=== PATIENT | male | born 2000 | race African-American/Black ===

== ENCOUNTER 2020-07-02 13:09 | Emergency (ER) | payer OTHER, SELFPAY ==
[2020-07-02 13:41] VITALS: BP 128/64; PULSE 71; RESP 16; TEMP 36.9; O2SAT 100
[2020-07-02 14:19] LABS: Add Urine Microscopic? NO; Appearance Urine Clear (Clear); Bilirubin Urine Negative (Negative); Blood Urine Negative (Negative); Color Urine Yellow (Yellow); Glucose Urine UA Negative (Negative); Ketones Urine Negative (Negative); Leukocyte Esterase Ur Negative LEU/UL (Negative); Nitrate Urine Negative (Negative); Protein Urine Negative (Negative); Specific Grav Ur 1.023 (1.001-1.035); Urobilinogen Urine Negative mg/dL (<2.0)
--- NOTE | 2020-07-02 14:36 | ED.MALEGU ---
HPI - Male Genitourinary General Chief complaint: Urogenital-Male Stated complaint: GENITAL INFLAMMATION Time Seen by Provider: 07/02/20 14:03 Source: patient Mode of arrival: ambulatory Limitations: no limitations History of Present Illness HPI Narrative: This is a 19 year old male that presents to the ER for discomfort in the tip of his penis x 1 week. Reports some inflammation and irritation to the area. Reports recent unprotected sex. Denies fever, dysuria or hematuria. Related Data Home Medications Medication Instructions Recorded Confirmed No Home Medications 07/02/20 07/02/20 Allergies Allergy/AdvReac Type Severity Reaction Status Date / Time No Known Allergies Allergy Unverified 07/02/20 14:36 Review of Systems Review of Systems: Narrative: CONSTITUTIONAL: Denies fever GENITOURINARY: Denies dysuria or hematuria. SKIN: Denies rash All systems reviewed & are unremarkable except as noted in HPI and below PMFSH Past Medical History Medical History (Updated 07/02/20 @ 15:11 by Darlyn Montague PA-C) No active medical problems Social History Social History (Updated 07/02/20 @ 14:38 by Darlyn Montague PA-C) Substance use: never Exam Narrative: Exam Narrative: GENERAL: Well-appearing, well-nourished, and in no acute distress. HEAD: Normocephalic, atraumatic. EYES: EOMI. EXTREMITIES: Normal range of motion. No edema. SKIN: Warm, dry, no rash. NEURO: No focal deficits. Alert and oriented x3. PSYCH: Normal mood and affect MALE GENITAL: Normal appearing external genitalia. Mild clear discharge from the penis Course Vital Signs Vital signs: Vital Signs Temperature 98.5 F 07/02/20 13:41 Pulse Rate 71 07/02/20 13:41 Respiratory Rate 16 07/02/20 13:41 Blood Pressure 128/64 07/02/20 13:41 Pulse Oximetry 100 07/02/20 13:41 Temperature 98.5 F 07/02/20 13:41 Pulse Rate 71 07/02/20 13:41 Respiratory Rate 16 07/02/20 13:41 Blood Pressure 128/64 07/02/20 13:41 Pulse Oximetry 100 07/02/20 13:41 MDM - Male Genitourinary MDM Narrative Medical decision making narrative: Patient presents to the emergency department for urethral pain and discharge. Does report recent unprotected sex. No other rashes or abnormalities noted on exam. UA is without concerning findings. Chlamydia, gonorrhea, and trichomonas was sent. Patient presumptively treated for these, looking back in the chart he does have history of chlamydia. Patient was instructed to follow-up with his primary care doctor. He was given warnings to return to the ER Lab Data Attestation: I reviewed the patient's lab results. Labs: Lab Results 07/02/20 07/02/20 Range/Units 14:06 14:06 Urine Color Yellow (Yellow) Urine Appearance Clear (Clear) Urine pH 6.0 (5.0-9.0) Ur Specific [place] 1.023 (1.001-1.035) Urine Protein Negative (Negative) mg/dL Urine Glucose (UA) Negative (Negative) mg/dL Urine Ketones Negative (Negative) mg/dL Ur Blood (Man) Negative (Negative) Urine Nitrate Negative (Negative) Urine Bilirubin Negative (Negative) Urine Urobilinogen Negative (<2.0) mg/dL Leukocyte Esterase Rfl Negative (Negative) SAL/UL C.trachomatis RNA (TMA) Pending N.gonorrhoeae RNA (TMA) Pending T. vaginalis Amp RNA Pending Critical Care Time Critical Care Time Critical Care Time: No Discharge Plan Discharge Clinical Impression: Concern about STD in male without diagnosis Patient Disposition: Home, Self-Care Condition: Stable Instructions: Antibiotic Form, Sexually Transmitted Diseases (ED), Safe Sex Practices (ED) Additional Instructions: Return to the ER if you experience fever, abdominal pain with nausea and vomiting, you are unable to keep down liquids or solids, blood in the stool, pain or burning with urination, blood in the urine or any other symptoms that are concerning to you Follow up with your primary care doctor Jose Luis
[2020-07-02] MEDS: cefTRIAXone 250 MG VIAL IM (15:36)
[2020-07-02] MEDS: AZITHROMYCIN 250 MG TABLET 1000 MG PO (15:36)
[2020-07-02] MEDS: LIDOCAINE HCL 1% LOCAL INJ 20 ML VIAL (15:36)
[2020-07-02] MEDS: metroNIDAZOLE 250 MG TABLET 2000 MG PO (15:36)
== END 2020-07-02 15:37 | disposition home or self-care (01) ==
PROVIDERS: Physician Assistant; Emergency Provider Emergency Medicine; PCP Internal Medicine
DX: Z20.2 Contact with and (suspected) exposure to infections with a predominantly sexual mode of transmission (principal)
CPT/HCPCS: 81003; 87491; 87591; 87661; 96372; 99283; A9270; J0696

== ENCOUNTER 2020-10-28 14:31 | Emergency (ER) | payer OTHER, SELFPAY ==
[2020-10-28 14:32] VITALS: BP 148/88; PULSE 84; RESP 18; TEMP 36.5; O2SAT 100
[2020-10-28 16:01] VITALS: BP 138/62; PULSE 80; RESP 18; O2SAT 99
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
[2020-10-28 17:46] VITALS: BP 122/78; PULSE 72; RESP 18; O2SAT 99
== END 2020-10-28 17:47 | disposition home or self-care (01) ==
PROVIDERS: Emergency Provider Family Medicine; PCP Internal Medicine
DX: L25.9 Unspecified contact dermatitis, unspecified cause (principal)
CPT/HCPCS: 99281

== ENCOUNTER 2022-01-14 19:20 | Emergency (ER) | payer OTHER, SELFPAY ==
--- NOTE | ~2022-01-14 | CT_ITS ---
EXAMINATION: CT brain wo con DATE: 01/15/2022 03:03 INDICATION: Vertigo. Dizziness. TECHNIQUE: Computed tomography (CT) of the head was performed without intravenous contrast. The mA wa s adjusted according to patient size. Iterative reconstruction technique was employed. The dose-lengt h product was 681.00 mGy-cm. COMPARISON: None FINDINGS: There is no intracranial hemorrhage, acute infarction, or abnormal intracranial mass lesion . The ventricles are normal in size. There is mild mucosal thickening in the paranasal sinuses. The o rbits are normal. The mastoid air cells are normal. IMPRESSION: 1. Normal brain. Reviewed, dictated and finalized at location A. IMPRESSION: 1. Normal brain.
[2022-01-14 19:29] VITALS: BP 152/84; PULSE 104; RESP 16; TEMP 36.8; O2SAT 100
--- NOTE | 2022-01-14 19:33 | ECG_ITS ---
Measurements Intervals [place] Rate: 77 P: 53 VT: 164 QRS: -71 QRSD: 96 T: 54 QT: 353 QTc: 400 Interpretive Statements SINUS RHYTHM WITH SINUS ARRHYTHMIA LEFT ANTERIOR FASCICULAR BLOCK NONSPECIFIC ST ELEVATION CONSIDER EARLY REPOLARIZATION ABNORMALITY, PERICARDITIS BORDERLINE ECG NO PREVIOUS ECG AVAILABLE FOR COMPARISON Electronically Signed On 01-15-2022 14:35:15 CDT by Ryan Hammond M.D.
[2022-01-14 19:50] LABS: Basophils Percent Auto 0.5 % (0.2-1.2); Eosinophils Absolute Auto 0.3 K/mm3 (0-0.3); Eosinophils Percent Auto 4.7 % (0-4.4); Hematocrit 43.7 % (42.0-52.0); Hemoglobin 15.1 g/dL (14.0-18.0); Immature Granulocyte Absolute 0.01 K/mm3 (0.00-0.031); Immature Granulocyte Percent A 0.2 % (0-0.5); Lymphocytes Absolute Auto 2.06 K/mm3 (0.9-3.2); Lymphocytes Percent Auto 32.1 % (18.3-44.2); Mean Corpuscular HGB Conc 34.6 g/dl (32-36); Mean Corpuscular Hemoglobin 30.9 pg (26-34); Mean Corpuscular Volume 89.5 fl (80-100); Mean Platelet Volume 9.1 fl (7.4-10.4); Monocytes Absolute Auto 0.5 K/mm3 (0.1-0.6); Monocytes Percent Auto 7.5 % (2.6-8.5); Neutrophils Absolute Auto 3.5 K/mm3 (1.3-6.7); Platelet Count Result 258 k/mm3 (150-375); Red Blood Count 4.88 M/mm3 (4.6-6.20); Red Cell Distribution Width 12.1 % (11.5-14.5); White Blood Count 6.4 K/mm3 (4.5-10.0)
[2022-01-14 20:01] LABS: Alanine Aminotransferase 30 U/L (6-50); Albumin Level 4.4 g/dL (3.5-5.1); Alkaline Phosphatase 70 U/L (38-126); Anion Gap 9 mmol/L (8-16); Aspartate Amino Transferase 33 U/L (17-59); Bilirubin,Total 0.5 mg/dL (0.2-1.3); Blood Urea Nitrogen 10 mg/dL (9-20); Calcium 8.6 mg/dL (8.4-10.2); Carbon Dioxide 23 mmol/L (22-30); Chloride 105 mmol/L (98-107); Estimated CRCL calculation 118 ml/min; Estimated Glomerular Filt Rate > 60; Glucose 110 mg/dL (65-110); Potassium 3.9 mmol/L (3.4-5.0); Sodium 137 mmol/L (137-145)
[2022-01-15] VITALS (24 sets, daily range): BP systolic 125–147; BP diastolic 67–100; PULSE 63–89; RESP 15–20; O2SAT 95–100
--- NOTE | 2022-01-15 02:50 | ED.DIZZY ---
HPI - Dizziness General Chief Complaint: Dizziness Stated Complaint: dizzy Time Seen by Provider: 01/15/22 02:31 History of Present Illness HPI Narrative: 21-year-old male presenting to the emergency department for evaluation of persistent vertigo symptoms. Patient states approximately 1 week ago he began having vertigo symptoms. Does report dizziness and a spinning sensation. Patient does have a familial history of vertigo but denies any personal history of vertigo. Patient denies any falls or injuries. Patient denies any ear pain or ear pressure. Patient denies any sinus pressure. Patient denies any recent coughs colds or fevers. Patient has no prior history of head injury. Patient did have follow-up with his primary care physician on Thursday and was provided meclizine and states this has not helped. Denies any associated focal numbness or weakness. Related Data Home Medications Medication Instructions Recorded Confirmed No Home Medications 07/02/20 10/28/20 Allergies Allergy/AdvReac Type Severity Reaction Status Date / Time No Known Allergies Allergy Verified 01/14/22 19:32 Review of Systems Review of Systems: CONSTITUTIONAL: Denies fever, chills, or sweats. EYES: Denies visual changes, redness, or discharge. ENT: Denies rhinorrhea, congestion, sore throat, or otalgia. CARDIOVASCULAR: Denies chest pain, palpitations, or edema. RESPIRATORY: Denies cough or dyspnea. GASTROINTESTINAL: Denies abdominal pain, nausea, vomiting, or diarrhea. GENITOURINARY: Denies dysuria or hematuria. SKIN: Denies rash or itching. MUSCULOSKELETAL: Denies back pain, joint pain, or myalgia. NEUROLOGIC: Denies headache, numbness, or weakness. Does report dizziness, see HPI PMFSH Past Medical History Medical History No active medical problems Social History Social History Substance use: never Gender identity (if verbalized by the patient): Male Exam Narrative: APPEARANCE: Well appearing, no pain, no distress, well-nourished. HEAD: normocephalic, atraumatic. EYES: PERRLA/EOMI, conjunctivae clear. NOSE: Normal no drainage EARS:TMS clear with good light reflex. THROAT: Pharynx clear, no exudate. NECK: Supple. No adenopathy, no masses. RESPIRATORY: Airway patent, respirations nonlabored. Clear to auscultation bilaterally, no rales, rhonchi, wheezing. CARDIOVASCULAR: Regular rate and rhythm without murmurs rubs or gallops. ABDOMINAL: Soft, nontender, nondistended, normal bowel sounds MUSCULOSKELETAL: Moves all extremities. Strength/ROM intact, No edema, No calf tenderness. NEURO: Alert. Cranial nerves II through XII intact. Some to stay nystagmus when looking to the right. Normal neuro exam, no ataxia, no drift. SKIN: Warm, dry. Normal Color Course Course Emergency Course: Patient did feel improved with treatment. Patient had a negative head CT. Patient was provided information for vertigo treatment at home but also encouraged to have close follow-up with neurology. Vital Signs Vital signs: Vital Signs Temperature 98.2 F 01/14/22 19:29 Pulse Rate 104 H 01/14/22 19:29 Respiratory Rate 16 01/14/22 19:29 Blood Pressure 152/84 H 01/14/22 19:29 Pulse Oximetry 100 01/14/22 19:29 Oxygen Delivery Room Air 01/14/22 19:29 Temperature 98.2 F 01/14/22 19:29 Pulse Rate 72 01/15/22 04:52 Respiratory Rate 18 01/15/22 04:52 Blood Pressure 130/72 01/15/22 04:52 Pulse Oximetry 99 01/15/22 04:52 Oxygen Delivery Room Air 01/14/22 19:29 MDM - Dizziness Lab Data Attestation: I reviewed the patient's lab results. Result diagrams: 01/14/22 19:39 01/14/22 19:39 Labs: Lab Results 01/14/22 01/14/22 Range/Units 19:39 19:39 WBC 6.4 (4.5-10.0) K/mm3 RBC 4.88 (4.6-6.20) M/mm3 Hgb 15.1 (14.0-18.0) g/dL Hct 43.7 (42.0-52.0) % [facility]
[2022-01-15] MEDS: MECLIZINE HCL 25 MG TABLET PO (03:49)
[2022-01-15] MEDS: diazePAM (*CRX) 2 MG TABLET PO (03:49)
== END 2022-01-15 04:56 | disposition home or self-care (01) ==
PROVIDERS: Emergency Medicine; Emergency Provider Emergency Medicine; PCP Internal Medicine
DX: H81.10 Benign paroxysmal vertigo, unspecified ear (principal); I44.4 Left anterior fascicular block; R94.31 Abnormal electrocardiogram [ECG] [EKG]; I31.9 Disease of pericardium, unspecified
CPT/HCPCS: 36415; 70450; 80053; 85025; 93005; 99284; A9270

== ENCOUNTER 2022-01-29 17:29 | Emergency (ER) | payer OTHER, SELFPAY ==
--- NOTE | 2022-01-29 17:46 | ED.EYEPROB ---
HPI - Eye Problem General Chief complaint: Eye Problems Stated complaint: bilateral eye redness and irritation Time Seen by Provider: 01/29/22 17:47 Source: patient, RN notes reviewed and old records reviewed Mode of arrival: ambulatory Limitations: no limitations History of Present Illness HPI Narrative: 21-year-old male presents to the [facility] with complaints of redness to bilateral eyes and irritation with increased tearing. Wears contact lenses. Denies any trauma. No hyphema. No change in vision. Patient reports that the left eye started yesterday, woke up this morning in the right eye and over the day has progressed MD chief complaint: eye pain and eye redness Related Data Patient tetanus UTD: Yes Allergies Allergy/AdvReac Type Severity Reaction Status Date / Time No Known Allergies Allergy Verified 01/29/22 17:46 Review of Systems Review of Systems: All systems reviewed & are unremarkable except as noted in HPI and below Constitutional: Constitutional: Reports no additional constitutional complaints, Denies chills and Denies fever(s) Eyes: Eyes: Reports as per HPI, Denies blind spots, Denies blurry vision, Denies exophthalmos, Denies change in vision, Reports eye discharge, Reports itchy eyes, Denies eye pain and Denies photophobia ENT: Reports system reviewed and no additional complaints, except as documented Cardiovascular: Cardiovascular: Reports no additional cardiovascular complaints Respiratory: Respiratory: Reports no additional respiratory complaints Gastrointestinal: Gastrointestinal: Reports no additional gastrointestinal complaints Musculoskeletal: Musculoskeletal: Reports no additional musculoskeletal complaints Integumentary/Breasts: Skin/Breast: Reports system reviewed and no additional complaints, except as docu Neurologic: Reports system reviewed and no additional complaints, except as documented Psychiatric: Psychiatric: Reports no additional psychiatric complaints Allergic/Immunologic: Allergic/Immunologic: Reports no additional allergic/immunologic complaints [facility] Past Medical History Medical History No active medical problems Social History Social History Substance use: never Gender identity (if verbalized by the patient): Male Comments At the time of my signature, I reviewed and agree with the nursing past medical, surgical, social, and family history. There is no relevant family history pertinent to the patient complaint. Exam Const: General: healthy appearing, no acute distress and alert Nutritional Appearance: well nourished Orientation/consciousness: patient oriented x3 Limitations: no limitations HENMT: Head: normal to inspection Ears: external ears normal Eyes: General: appearance normal, both eyes and all related structures Conjunctivae: conjunctival abnormality bilateral conjunctival injection and discharge (Clear) Pupils: Equal, round and reactive pupils present EOM: EOMs intact bilaterally Direct Ophthalmoscopy: no photophobia Neck: Neck: normal visual inspection, no lymphadenopathy and no meningeal signs Chest: Chest palpation & inspection: normal inspection of the chest Resp: Effort & Inspection: normal respiratory effort and no use of accessory muscles Auscultation: clear to auscultation bilaterally, no crackles, no rales, no rhonchi and no wheezes Cardio: Rate: regular rate Rhythm: regular rhythm Back/Spine/Pelvis: Cervical Spine: normal cervical lordosis Thoracic/Lumbar Spine: thoracic and lumbar spine normal to inspection Skin: General skin exam: normal color Rashes: no rashes Wounds: no wounds Neuro: General: patient oriented x3, moves all extremities, no meningeal signs and no focal motor deficits Cranial nerves: Yes Equal, round and reactive pupils present Speech: normal speech Gait exam (Neuro): Normal gait present Extrem: Ge
[2022-01-29 17:48] VITALS: BP 143/75; PULSE 80; RESP 18; TEMP 36.9; O2SAT 100
== END 2022-01-29 18:15 | disposition home or self-care (01) ==
PROVIDERS: Emergency Provider Nurse Practitioner; PCP Internal Medicine
DX: H10.9 Unspecified conjunctivitis (principal)
CPT/HCPCS: 99213; G0463

== ENCOUNTER 2022-03-15 08:42 | Outpatient (CLI) | payer OTHER, SELFPAY ==
--- NOTE | ~2022-03-15 | MR_ITS ---
EXAMINATION: MR brain/brain stem wo/w con DATE: 03/15/2022 09:19 INDICATION: Vertigo. TECHNIQUE: Magnetic resonance imaging (MRI) of the brain and brainstem was performed without and with 18 mL MultiHance intravenous contrast. COMPARISON: Head CT 01/15/2022 FINDINGS: There is no intracranial hemorrhage, acute infarction, or abnormal intracranial mass lesion . The ventricles are normal in size. There is mild mucosal thickening in the paranasal sinuses. Right maxillary sinus is small. The orbits are normal. The mastoid air cells are normal. IMPRESSION: 1. Normal brain. Reviewed, dictated and finalized at location A. IMPRESSION: 1. Normal brain.
== END 2022-03-15 08:43 | disposition home or self-care (01) ==
PROVIDERS: PCP Internal Medicine; Visit Provider Student in an Organized Health Care Education/Training Program
DX: R42 Dizziness and giddiness (principal)
CPT/HCPCS: 70553; A9577